=== PATIENT | male | born 1960 | race Caucasian/White ===

== ENCOUNTER 2018-06-18 07:30 | Emergency (ER) | payer MEDICAID ==
[~2018-06-18] VITALS: Ht 182.9 cm; Wt 73.0 kg
[2018-06-18] MEDS ORDERED: PHENYLEPHRINE NASAL 1%, 15ML SPRAY ONE (07:34)
[2018-06-18] MEDS ORDERED: PLEASE ENTER HEIGHT AND WEIGHT MC SCH (08:00)
[2018-06-18] MEDS ORDERED: PHENYLEPHRINE NASAL 0.5%, 15ML SPRAY NAS PRN (08:00)
[2018-06-18] MEDS ORDERED: SILVER NITRATE STICK TP ONE ×2 (08:49→09:00)
[2018-06-18 10:33] VITALS: BP 145/99
== END 2018-06-18 10:40 | disposition home or self-care (01) ==
LOC: ED 10:15
DX: R04.0 Epistaxis (principal)
CPT/HCPCS: 99283

== ENCOUNTER 2018-06-18 13:32 | Emergency (ER) | payer MEDICAID ==
[~2018-06-18] VITALS: Ht 182.9 cm; Wt 68.0 kg
[2018-06-18 13:36] VITALS: BP 159/90
[2018-06-18] MEDS ORDERED: PHENYLEPHRINE NASAL 1%, 15ML SPRAY ONE (13:42)
[2018-06-18] MEDS ORDERED: LIDOCAINE-MPF 2%, 2ML ONE (13:44)
[2018-06-18 14:51] LABS: BASOPHILS # (AUTO) 0.03 x10^3/uL (0-0.1); BASOPHILS % (AUTO) 1 % (0-1); EOSINOPHILS % (AUTO) 0 % (1-7); LYMPHOCYTES # (AUTO) 1.31 x10^3/uL (1-3.4); LYMPHOCYTES % (AUTO) 22 % (22-44); MD NO; MEAN CORPUSCULAR HEMOGLOBIN 35.2 pg (27.5-34.5); MEAN CORPUSCULAR HGB CONC 34.8 g/dL (33.2-36.2); MEAN CORPUSCULAR VOLUME 101.1 fL (81-97); MEAN PLATELET VOLUME 8.6 fL (7.4-10.4); MONOCYTES # (AUTO) 0.53 x10^3/uL (0.2-0.8); MONOCYTES % (AUTO) 9 % (2-9); NEUTROPHILS # (AUTO) 3.99 x10^3/uL (1.8-6.8); NEUTROPHILS % (AUTO) 68 % (42-75); PLATELET COUNT 114 x10^3/uL (130-400); RED BLOOD COUNT 3.78 x10^6/uL (4.38-5.82); RED CELL DISTRIBUTION WIDTH 13.9 % (9.4-14.8)
[2018-06-18 15:01] LABS: INTERNATIONAL NORMALIZED RATIO 1.16 (0.93-1.1)
[2018-06-18 15:07] LABS: CHLORIDE 105 mmol/L (98-107)
[2018-06-18 15:14] LABS: ALANINE AMINOTRANSFERASE 99 U/L (12-78); ALKALINE PHOSPHATASE 74 U/L (45-117); ANION GAP 9 mmol/L (5-15); CALCIUM 8.5 mg/dL (8.5-10.1); CREATININE 0.96 mg/dL (0.7-1.3); TOTAL PROTEIN 8.9 g/dL (6.4-8.2)
== END 2018-06-18 16:37 | disposition home or self-care (01) ==
LOC: ED 13:37
DX: R04.0 Epistaxis (principal)
CPT/HCPCS: 36415; 80053; 85025; 85610; 85730; 99284

== ENCOUNTER 2018-06-23 15:22 | Emergency (ER) | payer MEDICAID ==
[~2018-06-23] VITALS: Ht 182.9 cm; Wt 72.3 kg
[2018-06-23 15:24] VITALS: BP 150/90
[2018-06-23] MEDS ORDERED: OXYMETAZOLINE NASAL SPRAY 0.05%, 15ML ONE (15:34)
== END 2018-06-23 16:11 | disposition home or self-care (01) ==
LOC: ED 16:05
DX: R04.0 Epistaxis (principal); B85.1 Pediculosis due to Pediculus humanus corporis; Z59.0 Homelessness; Z72.9 Problem related to lifestyle, unspecified; F17.200 Nicotine dependence, unspecified, uncomplicated
CPT/HCPCS: 99282